=== PATIENT | female | born 1980 | race African-American/Black ===

== ENCOUNTER 2024-02-19 10:33 | Emergency (ER) | payer BC ==
[~2024-02-19] VITALS: Ht 170.2 cm; Wt 75.0 kg
[2024-02-19 10:35] VITALS: BP 110/77; PULSE 89; RESP 16; O2SAT 100
[2024-02-19 12:15] VITALS: TEMP 98.5
[2024-02-19] MEDS: ACETAMINOPHEN 325MG TABLET PO ONE (12:15)
[2024-02-19] MEDS ORDERED: IBUP-1523 MT (15:06)
[2024-02-19] MEDS ORDERED: TOPUD MT (15:06)
== END 2024-02-19 19:14 | disposition home or self-care (01) ==
LOC: ER 12:13
DX: S16.1XXA Strain of muscle, fascia and tendon at neck level, initial encounter (principal); V89.2XXA Person injured in unspecified motor-vehicle accident, traffic, initial encounter; Y93.89 Activity, other specified; Y92.89 Other specified places as the place of occurrence of the external cause; Y99.8 Other external cause status
CPT/HCPCS: 71045; 72040; 73030; 99284